=== PATIENT | female | born 1960 | race Caucasian/White ===

== ENCOUNTER 2023-08-07 10:28 | Emergency (ER) | payer BC, MEDICAID ==
[~2023-08-07] VITALS: Ht 152.4 cm; Wt 72.0 kg
[2023-08-07 10:39] VITALS: BP 190/100; PULSE 82; RESP 20; TEMP 98.4; O2SAT 97
[2023-08-07] MEDS: CYCLOBENZAPRINE 10MG TABLET PO ONE (14:04)
[2023-08-07] MEDS: KETOROLAC 15MG/ML VIAL IM ONE (14:04)
[2023-08-07] MEDS ORDERED: NAPR-681 MT (15:38)
== END 2023-08-07 17:14 | disposition home or self-care (01) ==
LOC: ER 10:28
DX: M79.18 Myalgia, other site (principal); I10 Essential (primary) hypertension; W18.30XA Fall on same level, unspecified, initial encounter; Y93.89 Activity, other specified; Y92.89 Other specified places as the place of occurrence of the external cause; Y99.8 Other external cause status
CPT/HCPCS: 99284; 72100; 73030; 96372; J1885